=== PATIENT | female | born 1990 | race American Indian/Alaskan Native ===

== ENCOUNTER 2016-12-10 15:50 | Emergency (ER) | payer SELFPAY ==
[2016-12-10 16:40] VITALS: BP 118/76
--- NOTE | 2016-12-10 16:42 | Emergency Department Report ---
Chief Complaint: Abdominal Pain Stated Complaint: ABD PAIN Time Seen by Provider: 12/10/16 16:38 - HPI History of Present Illness: PT c/o LUQ abd pain, onset today. PT states she has been having these pains intermittently x 7 years. - ROS Review of Systems: + abd pain - vomiting - Exam Vital Signs: Vital Signs 12/10/16 16:34 Temperature 98.8 F Pulse Rate 95 H Respiratory 16 Rate Blood Pressure 118/76 O2 Sat by Pulse 99 Oximetry Physical Exam: pt looks well, non toxic, thin pt guarding abd. MSE screening note: Focused history and physical exam performed. Due to findings the following was ordered: labs ED Disposition for MSE Condition: Stable Instructions: Abdominal Pain (ED)
[2016-12-10 16:58] LABS: Basophils % (Auto) 0.5 % (0.0-1.8); Eosinophils % (Auto) 4.1 % (0.0-4.3); Hematocrit 42.2 % (30.3-42.9); Hemoglobin 13.9 gm/dl (10.1-14.3); Mean Corpuscular HGB Conc 33 % (30-34); Mean Corpuscular Hemoglobin 30 pg (28-32); Mean Corpuscular Volume 92 fl (79-97); Platelet Count 218 K/mm3 (140-440); Red Blood Count 4.61 M/mm3 (3.65-5.03); Red Cell Distribution Width 12.7 % (13.2-15.2)
[2016-12-10 17:15] LABS: Alanine Aminotransferase 10 units/L (7-56); Albumin 4.6 g/dL (3.9-5); Albumin/Globulin Ratio 1.4 %; Alkaline Phosphatase 62 units/L (35-129); Anion Gap 17 mmol/L; Blood Urea Nitrogen 14 mg/dL (7-17); Calcium 9.2 mg/dL (8.4-10.2); Carbon Dioxide 25 mmol/L (22-30); Chloride 101.5 mmol/L (98-107); Glucose 66 mg/dL (65-100); Lipase 44 units/L (13-60); Potassium 4.2 mmol/L (3.6-5.0); Sodium 139 mmol/L (137-145)
[2016-12-10 18:59] LABS: Bilirubin,Urine NEG (Negative); Blood,Urine NEG (Negative); Ketones,Urine NEG (Negative); Leukocyte Esterase,Urine TR (Negative); Mucus,Urine 1+ /HPF; Nitrite,Urine NEG (Negative); Protein,Urine <15 mg/dL mg/dL (Negative); Urobilinogen,Urine < 2.0 mg/dL (<2.0)
--- NOTE | 2016-12-15 11:07 | ED Elopement Review ---
ED Pt Elopement review - Results review Lab results: Laboratory Tests 12/10/16 12/10/16 12/10/16 16:47 16:47 16:47 WBC 8.0 RBC 4.61 Hgb 13.9 Hct 42.2 MCV 92 MCH 30 MCHC 33 RDW 12.7 L Plt Count 218 Lymph % (Auto) 29.4 Gu[place]upe % (Auto) 7.4 H Eos % (Auto) 4.1 Baso % (Auto) 0.5 Lymph # 2.3 Guadalupe # 0.6 Eos # 0.3 Baso # 0.0 Seg Neutrophils % 58.6 Seg Neutrophils # 4.7 Sodium 139 Potassium 4.2 Chloride 101.5 Carbon Dioxide 25 Anion Gap 17 BUN 14 Creatinine 0.7 Estimated GFR > 60 BUN/Creatinine Ratio 20.00 Glucose 66 Calcium 9.2 Total Bilirubin 0.30 AST 13 ALT 10 Alkaline Phosphatase 62 Total Protein 8.0 Albumin 4.6 Albumin/Globulin Ratio 1.4 Lipase 44 HCG, Qual Negative Urine Color Urine Turbidity Urine pH Ur Specific [place] Urine Protein Urine Glucose (UA) Urine Ketones Urine Blood Urine Nitrite Urine Bilirubin Urine Urobilinogen Ur Leukocyte Esterase Urine WBC (Auto) Urine RBC (Auto) U Epithel Cells (Auto) Urine Mucus 12/10/16 18:30 WBC RBC Hgb Hct MCV MCH MCHC RDW Plt Count Lymph % (Auto) Gu[place]upe % (Auto) Eos % (Auto) Baso % (Auto) Lymph # [place]upe # Eos # Baso # Seg Neutrophils % Seg Neutrophils # Sodium Potassium Chloride Carbon Dioxide Anion Gap BUN Creatinine Estimated GFR BUN/Creatinine Ratio Glucose Calcium Total Bilirubin AST ALT Alkaline Phosphatase Total Protein Albumin Albumin/Globulin Ratio Lipase HCG, Qual Urine Color Yellow Urine Turbidity Clear Urine pH 5.0 Ur Specific [place] 1.032 H Urine Protein <15 mg/dl Urine Glucose (UA) Neg Urine Ketones Neg Urine Blood Neg Urine Nitrite Neg Urine Bilirubin Neg Urine Urobilinogen < 2.0 Ur Leukocyte Esterase Tr Urine WBC (Auto) 1.0 Urine RBC (Auto) 3.0 U Epithel Cells (Auto) 4.0 Urine Mucus 1+ - Call Back decision Pt Call Back Decision: No action required
== END 2016-12-10 18:38 | disposition left against medical advice (07) ==
LOC: ED 15:50
DX: R10.12 Left upper quadrant pain (principal); Z53.21 Procedure and treatment not carried out due to patient leaving prior to being seen by health care provider
CPT/HCPCS: 36415; 80053; 81001; 83690; 84703; 85025

== ENCOUNTER 2019-01-15 06:54 | Outpatient (CLI) | payer OTHER ==
--- NOTE | 2019-01-15 08:03 | XRay Report ---
ABDOMEN 1 VIEW INDICATION / CLINICAL INFORMATION: R10.84 ABDOMINAL PAIN GENERALIZED/R14.0 BLOATING/GAS PAIN/R19.4CH. COMPARISON: None available. FINDINGS: TUBES / LINES: None. BOWEL GAS PATTERN: No significant abnormality. FREE AIR / EXTRALUMINAL GAS: None seen. ADDITIONAL FINDINGS: No significant additional findings. IMPRESSION: No significant abnormality. Signer Name: Tim Frost MD Signed: 01/15/2019 7:59 AM Workstation Name: [email or web address]
== END 2019-01-15 06:55 | disposition home or self-care (01) ==
LOC: XRAY 06:54
PROVIDERS: ATTEND Internal Medicine Gastroenterology
DX: R10.84 Generalized abdominal pain (principal); R14.0 Abdominal distension (gaseous); R19.4 Change in bowel habit; J45.909 Unspecified asthma, uncomplicated; K21.9 Gastro-esophageal reflux disease without esophagitis
CPT/HCPCS: 74018

== ENCOUNTER 2022-02-23 02:37 | Inpatient (IN) | payer MEDICAID ==
--- NOTE | 2022-02-23 04:11 | Ultrasound Report ---
Obstetrical ultrasound follow-up INDICATION: well-being FINDINGS: There is a single intrauterine gestation that measures about 37 weeks and 6 days. FUAD is no rmal at 10 cm. The fetus is in the cephalic position. heart rates 136 bpm. The fetus weight is approximately 3297 g. IMPRESSION: Single living intrauterine measuring 37 weeks and 6 days. Signer Name: Aj Sheppard MD Signed: 02/23/2022 4:06 AM Workstation Name: [employer] [facility]
[2022-02-23 04:29] LABS: Hematocrit 34.9 % (30.3-42.9); Hemoglobin 11.4 gm/dl (10.1-14.3); Mean Corpuscular HGB Conc 33 % (30-34); Mean Corpuscular Volume 86 fl (79-97); Platelet Count 214 K/mm3 (140-440); Red Blood Count 4.07 M/mm3 (3.65-5.03)
[2022-02-23] MEDS ORDERED: METHYLERGONOVINE MALEATE 0.2 MG/ML VIAL IM PRN (04:51)
[2022-02-23] MEDS ORDERED: ACETAMINOPHEN 325 MG TAB PO PRN ×2 (04:51→20:58)
[2022-02-23] MEDS ORDERED: TERBUTALINE 1 MG/1 ML INJ SUB-Q PRN (04:51)
[2022-02-23] MEDS ORDERED: fentaNYL 100 MCG/2 ML INJ IV PRN (04:51)
[2022-02-23] MEDS ORDERED: CARBOPROST TROMETHAMINE 250 MCG/1 ML INJ IM PRN (04:51)
[2022-02-23] MEDS ORDERED: OXYTOCIN DRIP 30 UNITS/500 ML BAG IV SCH ×2 (05:00→21:00)
[2022-02-23] MEDS ORDERED: LACTATED RINGERS 1,000 ML IV SCH (05:00)
[2022-02-23] MEDS: BUTORPHANOL 2 MG/1 ML INJ IV PRN ×2 (05:07→10:06)
--- NOTE | 2022-02-23 05:10 | History and Physical Report ---
History of Present Illness Date of examination: 02/23/22 Date of admission: 02/23/2022 Chief complaint: Leaking of fluid History of present illness: The patient is a 31-year-old at 39-1/7 weeks gestation who presents to OB triage reporting leaking of fluid. There is no vaginal bleeding. There are contractions that started after the leaking of fluid. There is good movement. In OB triage, ROM plus test was positive. Cervical exam is 1-2 cm dilated. The patient is admitted to labor and delivery for induction of labor secondary to premature rupture of membranes at term. Past History Past Medical History: no pertinent history, GERD Past Surgical History: other (Colonoscopy, EGD) Family/Genetic History: diabetes, hypertension Social history: no significant social history - Obstetrical History Expected Date of Delivery: 03/01/22 Actual Gestation: 39 Week(s) 1 Day(s) : 2 Para: 1 Hx # Term Pregnancies: 1 Number of Pregnancies: 0 Spontaneous Abortions: 0 Induced : 0 Number of Living Children: 1 Medications and Allergies Allergies Allergy/AdvReac Type Severity Reaction Status Date / Time No Known Allergies Allergy Verified 06/04/14 08:50 Home Medications Medication Instructions Recorded Confirmed Last Taken Type Ondansetron [Zofran TAB] 4 mg PO Q6HR PRN #10 tablet 10/18/13 05/10/14 Unknown Rx Hyoscyamine Subl [Levsin Sl 0.125 0.125 mg SL Q4HR PRN 05/10/14 05/10/14 Unknown History TAB] Omeprazole [PriLOSEC] 40 mg PO DAILY 05/10/14 05/10/14 Unknown History polyethylene glycoL 3350 [Miralax] 1 gm PO DAILY 05/10/14 05/10/14 Unknown History Nitrofurantoin Mccone/M-Cryst 100 mg PO Q12HR 7 Days #14 capsule 09/07/21 Unknown Rx [Macrobid CAP] Active Meds: Active Medications Acetaminophen (Acetaminophen 325 Mg Tab) 650 mg PO Q4H PRN PRN Reason: Pain, Mild (1-3) Butorphanol Tartrate (Butorphanol 2 Mg/1 Ml Inj) 2 mg IV Q2H PRN PRN Reason: Pain, Moderate(4-6) LABOR PAIN Carboprost Tromethamine (Carboprost Tromethamine 250 Mcg/1 Ml Inj) 250 mcg IM ONCE PRN PRN Reason: Uterine Bleeding Fentanyl (Fentanyl 100 Mcg/2 Ml Inj) 100 mcg IV Q2H PRN PRN Reason: Pain,Severe (7-10) LABOR PAIN Lactated Ringer's (Lactated Ringers) 1,000 mls @ 125 mls/hr IV DIRECT JOHNIE Oxytocin/Sodium Chloride (Pitocin/Ns 30 Unit/500ml) 30 units in 500 mls @ 40 mls/hr IV TITR JOHNIE; Protocol Methylergonovine Maleate (Methylergonovine Maleate 0.2 Mg/Ml Vial) 0.2 mg IM ONCE PRN PRN Reason: Uterine Bleeding Misoprostol (Misoprostol 25 Mcg Tab) 25 mcg PO Q4H JOHNIE Stop: 02/23/22 17:01 Terbutaline Sulfate (Terbutaline 1 Mg/1 Ml Inj) 0.25 mg SUB-Q ONCE PRN PRN Reason: Hyperstimulation/Hypertonicity Review of Systems All systems: negative - Vital Signs Vital signs: Vital Signs Temp 98.4 F 02/23/22 02:59 Temp Pulse Resp BP Pulse Ox 98.4 F 63 120/77 87 02/23/22 02:59 02/23/22 05:06 02/23/22 04:49 02/23/22 05:06 - Physical Exam Breasts: Positive: normal Cardiovascular: Regular rate Lungs: Positive: Normal air movement Abdomen: Positive: normal appearance Genitourinary (Female): Positive: normal external genitalia, normal perenium Vulva: both: normal Vagina: Positive: normal moisture Uterus: Positive: enlarged Adnexa: both: normal Anus/Rectum: Positive: normal perianal skin Extremities: Positive: normal Deep Tendon Reflex Grade: Normal +2 - Obstetrical FHR: category 1 Uterine Contraction Monitor Mode: External Cervical Dilatation: 1.5 (Mid) Cervical Effacement Percentage: 50 (Medium) station: -3 Uterine Contraction Frequency (min): 5 Uterine Contraction Pattern: Irregular Results Result Diagrams: 02/23/22 04:10 Abnormal lab results 02/23/22 Range/Units 04:10 RDW 17.0 H (13.2-15.2) % ROM plus = positive Ultrasound: report reviewed, image reviewed Assessment and Plan - Patient Problems (1) 39 weeks gestation of Current Visit: Yes Status: Acute Plan to address problem: care is up-to-date [facility]. She is GBS negative. (2) PROM with onset of labor within 24 hours of rupture Current Visit: Yes Status: Acute Plan to address problem: ROM plus is positive. The patient is 1 to 2 cm dilated. Contractions started after leaking of fluid. As such, this fulfills the contemporary criteria for premature rupture membranes at term. Therefore, induction of labor is medically indicated at this gestational age. (3) Encounter for induction of labor Current Visit: Yes Status: Acute Plan to address problem: Ripen cervix with oral Cytotec. Once cervix is favorable, then Pitocin per protocol.
[2022-02-23] MEDS: miSOPROStol 25 MCG TAB PO SCH ×2 (05:13→10:05)
--- NOTE | 2022-02-23 11:11 | Event Note ---
Date: 02/23/22 Evaluated patient, spouse at bs consoling her. c/o of pain. VE /-3. Per Rn Stadol 2mg recently given. Comfort measures discussed. VSS
[2022-02-23] MEDS ORDERED: fentaNYL-BUPIV 2 MCG/ML-0.125% 200 MCG/100 ML BAG EPIDURAL ONE (13:02)
[2022-02-23] MEDS ORDERED: ePHEDrine SULFATE 50 MG/1 ML INJ IV PRN (13:02)
[2022-02-23] MEDS ORDERED: NALOXONE 0.4 MG/1 ML INJ IV PRN (13:02)
[2022-02-23] MEDS ORDERED: fentaNYL-BUPIV 2 MCG/ML-0.125% 200 MCG/100 ML BAG EPIDURAL SCH (13:02)
--- NOTE | 2022-02-23 13:13 | Anesthesia Day of Surgery ---
Anesthesia Day of Surgery - Day of Surgery Patient Examined: Yes Patient H&P Reviewed: Yes Patient is NPO: Yes Beta Blockers: No Cardiac Clearance: No Pulmonary Clearance: No Bobby's Test: N/A
--- NOTE | 2022-02-23 13:13 | Anesthesia Consultation ---
Anesthesia Consult and Med Hx Date of service: 02/23/22 - Airway Anesthetic Teeth Evaluation: Good ROM Head & Neck: Adequate Mental/Hyoid Distance: Adequate Mallampati Class: Class II Intubation Access Assessment: Probably Good - Pulmonary Exam CTA: Yes - Cardiac Exam Cardiac Exam: RRR - Pre-Operative Health Status ASA Pre-Surgery Classification: ASA2 Proposed Anesthetic Plan: Epidural - Pulmonary Hx Smoking: No Hx Asthma: No Hx Respiratory Symptoms: No SOB: No COPD: No Home Oxygen Therapy: No Hx Pneumonia: No Hx Sleep Apnea: No - Cardiovascular System Hx Hypertension: No Hx Coronary Artery Disease: No Hx Heart Attack/AMI: No Hx Angina: No Hx Percutaneous Transluminal Coronary Angioplasty (PTCA): No Hx Cardia Arrhythmia: No Hx Pacemaker: No Hx Internal Defibrillator: No Hx Valvular Heart Disease: No Hx Heart Murmur: No Hx Peripheral Vascular Disease: No - Central Nervous System Hx Neuromuscular Disorder: No Hx Seizures: No CVA: No Hx Back Pain: No Hx Psychiatric Problems: No - Gastrointestinal Hx Ulcer: No (epigastric pain, chronic indigestion) Hx Gastroesophageal Reflux Disease: Yes - Endocrine Hx Renal Disease: No Hx End Stage Renal Disease: No Hx Cirrhosis: No Hx Liver Disease: No Hx Insulin Dependent Diabetes: No Hx Non-Insulin Dependent Diabetes: No Hx Thyroid Disease: No Hx Hypothyroidism: No Hx Hyperthyroidism: No - Hematic Hx Anemia: No Hx Sickle Cell Disease: No - Other Systems Hx Alcohol Use: Yes (social before ) Hx Substance Use: No Hx Cancer: No Hx Obesity: Yes
--- NOTE | 2022-02-23 13:14 | Progress Note ---
Labor Epidural - Labor Epidural Start Time: 12:27 Stop Time: 12:37 Performed by:: GOOD BRYAN Procedure: Epidural Requested for Labor Pain. H&P and PT Chart reviewed and consent obtained. Time out performed and the procedure was explained, all questions answered. Patient was placed in a sitting position with monitors applied. The PTs back was prepped and draped in usual sterile fashion. The Skin was localized with 3 mL of 1% lidocaine at L3-L4. A 17-gauge Touhy epidural needle was advanced to VANGIE with saline at 7 cm and no blood/CSF was noted via epidural needle. Epidural catheter was advanced to 12 cm. There was negative aspiration for blood and CSF in the catheter and negative response to a test dose of 3 ml 1.5% lidocaine w/ Epi and a sterile dressing was applied Patient tolerated the procedure well and there were no immediate complications noted.
--- NOTE | 2022-02-23 14:28 | Event Note ---
Date: 02/23/22 Assessed patient, she is smiling now. States feels much better after epidural. VE /-2 cat 1 tracing
[2022-02-23] MEDS ORDERED: MINERAL OIL 30 ML ORAL LIQD ONE (19:59)
[2022-02-23] MEDS ORDERED: miSOPROStol 200 MCG TAB ONE (20:30)
--- NOTE | 2022-02-23 20:47 | Procedure Note ---
OB Delivery Note - Delivery Date of Delivery: 02/23/22 (2020) Surgeon: JORGE MORALES Estimated blood loss: 100cc - Vaginal Delivery presentation: vertex Delivery position: OA Intrapartum events: meconium Delivery induction: misoprostol Delivery augmentation: rupture of membranes, pitocin Delivery monitor: external FHT, external uterine Route of delivery: Delivery placenta: spontaneous Delivery cord: 3 umbilical vessels Episiotomy: none Delivery laceration: 1st degree (midline vaginal) Delivery repair: chromic (2.0) Anesthesia: intravenous, epidural Delivery comments: now presented to labor and delivery complaining of fluid leaking. She was admitted, augmented with cytotec po, and received and epidural. Pitocin was started, she became complete/+1 station. She delivered a viable baby Girl @2020 on 02/23/2022, Meconium stainned, was placed on maternal abdomen, cord was cut by FOB and quickly given to [facility] team. 8/9, Placenta delivered spontaneously at 2026, remnents of placenta manually removed from uterus, cytotec 800mcg placed in rectum, 1st degree midline vaginal laceration was repaired with 2.0 chromic.QBL 100ml. Both Mother and infant are stable. - Infant A at 1 minute: 8 at 5 minutes: 9 Gender: Female
[2022-02-23] MEDS ORDERED: HYDROCORTISONE 25 MG RECTAL SUPP PR PRN (20:58)
[2022-02-23] MEDS ORDERED: MAGNESIUM HYDROXIDE (MOM) ORAL LIQD UDC PO PRN (20:58)
[2022-02-23] MEDS ORDERED: BENZOCAINE/MENTHOL 20/0.5% TOP SPRAY 56 GM TP PRN (20:58)
[2022-02-23] MEDS ORDERED: PROMETHAZINE 25 MG RECT SUPP PR PRN (20:58)
[2022-02-23] MEDS ORDERED: oxyCODONE /ACETAMINOPHEN 5-325MG TAB PO PRN (20:58)
[2022-02-23] MEDS ORDERED: diphenhydrAMINE 25 MG CAP PO PRN (20:58)
[2022-02-23] MEDS ORDERED: WITCH HAZEL/ GLYCERIN PAD TP PRN (20:58)
[2022-02-23] MEDS ORDERED: PROMETHAZINE 25 MG TAB PO PRN (20:58)
[2022-02-23] MEDS ORDERED: ONDANSETRON 4 MG/2 ML INJ IV PRN (20:58)
[2022-02-23] MEDS ORDERED: LANOLIN/ZINC/DIMETHICONE (LANSINOH) 7 GM TP PRN ×2 (20:58)
[2022-02-23] MEDS: SENNOSIDES/DOCUSATE SODIUM 8.6/50 MG TAB PO SCH (23:00)
[2022-02-23] MEDS: IBUPROFEN 600 MG TAB PO SCH (23:00)
[2022-02-23] MEDS: DOCUSATE SODIUM 100 MG CAP PO SCH (23:20)
[2022-02-24] MEDS: IBUPROFEN 600 MG TAB PO SCH (06:22)
[2022-02-24 09:48] LABS: Hematocrit 29.7 % (30.3-42.9); Hemoglobin 9.7 gm/dl (10.1-14.3)
--- NOTE | 2022-02-24 13:12 | Progress Note ---
Assessment and Plan A: PP Day #1 Asymptomatic Anemia Negative Flatus P: Follow Routine Orders Ferrous Sulfate 325mg PO BID Increase Increased Ambulation Subjective - Subjective Date of service: 02/24/22 Patient reports: appetite normal, voiding normally, pain well controlled, ambulating normally : doing well Objective - Vital Signs Latest vital signs: Vital Signs Temp Pulse Resp BP BP Pulse Ox Pulse Ox 02/24/22 11:57 98.1 F 80 20 111/76 97 02/24/22 08:27 98 02/24/22 07:36 97.9 F 84 16 115/70 95 02/24/22 07:21 18 02/24/22 06:22 20 02/24/22 04:45 98.5 F 87 20 115/78 98 02/24/22 00:19 18 02/24/22 00:00 98.4 F 02/23/22 23:19 18 02/23/22 23:00 18 02/23/22 22:48 100.9 F H 84 18 125/65 98 98 02/23/22 22:16 102 H 109/66 02/23/22 22:08 88 87 02/23/22 22:06 86 100 02/23/22 22:01 91 H 100 02/23/22 21:56 90 83 L 02/23/22 21:51 97 H 100 02/23/22 21:47 98.6 F 16 02/23/22 21:46 105 H 100 02/23/22 21:41 89 100 02/23/22 21:36 90 100 02/23/22 21:31 84 100 02/23/22 21:26 101 H 100 02/23/22 21:21 104 H 100 02/23/22 21:16 103 H 100 02/23/22 21:11 102 H 85 02/23/22 21:06 104 H 100 02/23/22 21:04 107 H 93 02/23/22 21:01 107 H 100 02/23/22 20:56 122 H 100 02/23/22 20:51 92 H 100 02/23/22 20:46 99 02/23/22 20:41 84 100 02/23/22 20:36 82 100 02/23/22 20:31 76 114/55 100 02/23/22 20:30 83 85 02/23/22 20:26 86 100 02/23/22 20:21 123 H 100 02/23/22 20:16 102 H 100 02/23/22 20:14 73 90 02/23/22 20:11 99 H 100 02/23/22 20:06 85 100 02/23/22 20:01 96 H 98 02/23/22 19:56 98 H 99 02/23/22 19:51 94 H 100 02/23/22 19:46 75 100 02/23/22 19:44 101 H 111/63 02/23/22 19:41 77 100 02/23/22 19:37 112 H 90 02/23/22 19:36 109 H 99 02/23/22 19:31 83 99 02/23/22 19:29 86 112/67 02/23/22 19:26 95 H 100 02/23/22 19:21 74 100 02/23/22 19:16 88 107/69 99 02/23/22 19:11 75 100 02/23/22 19:06 97.5 F L 63 17 100 100 02/23/22 19:01 69 99 02/23/22 19:00 72 101/60 02/23/22 18:56 72 100 02/23/22 18:51 87 100 02/23/22 18:46 76 100 02/23/22 18:45 74 91 02/23/22 18:41 71 100 02/23/22 18:36 66 80 L 02/23/22 18:31 76 100 02/23/22 18:26 92 H 100 02/23/22 18:21 73 100 02/23/22 18:16 82 93 02/23/22 18:11 78 100 02/23/22 18:06 67 100 02/23/22 18:01 73 100 02/23/22 17:59 76 115/78 02/23/22 17:56 72 100 02/23/22 17:51 67 100 02/23/22 17:46 69 100 02/23/22 17:45 66 126/80 02/23/22 17:41 75 100 02/23/22 17:36 74 100 02/23/22 17:31 75 138/80 100 02/23/22 17:26 67 100 02/23/22 17:21 75 100 02/23/22 17:16 73 100 02/23/22 17:15 76 105/67 02/23/22 17:14 97.5 F L 18 100 02/23/22 17:11 63 100 02/23/22 17:06 77 100 02/23/22 17:01 74 100 02/23/22 17:00 74 129/86 02/23/22 16:56 80 100 02/23/22 16:51 71 100 02/23/22 16:46 83 98 02/23/22 16:45 88 92 02/23/22 16:41 72 98 02/23/22 16:36 60 100 02/23/22 16:31 75 95/50 99 02/23/22 16:26 58 L 100 02/23/22 16:21 71 100 02/23/22 16:16 56 L 100 02/23/22 16:15 58 L 109/55 02/23/22 16:11 66 100 02/23/22 16:06 58 L 99 02/23/22 16:01 67 84 02/23/22 15:56 70 100 02/23/22 15:51 87 100 02/23/22 15:46 69 100 02/23/22 15:45 62 102/56 02/23/22 15:41 83 100 02/23/22 15:36 60 100 02/23/22 15:31 70 100 02/23/22 15:29 60 99/60 02/23/22 15:26 60 100 02/23/22 15:21 69 100 02/23/22 15:16 55 L 115/62 100 02/23/22 15:11 64 100 02/23/22 15:06 54 L 100 02/23/22 15:01 70 100 02/23/22 14:59 57 L 97/52 02/23/22 14:56 56 L 98 02/23/22 14:51 69 99 02/23/22 14:46 57 L 99 02/23/22 14:45 59 L 111/61 02/23/22 14:41 67 99 02/23/22 14:36 60 99 02/23/22 14:31 70 100 02/23/22 14:29 61 106/60 02/23/22 14:26 71 100 02/23/22 14:23 82 90 02/23/22 14:21 63 100 02/23/22 14:16 72 100 02/23/22 14:14 64 108/64 02/23/22 14:11 84 96 02/23/22 14:06 92 H 100 02/23/22 14:01 63 100 02/23/22 14:00 64 119/70 02/23/22 13:56 77 99 02/23/22 13:51 58 L 97 02/23/22 13:46 72 97 02/23/22 13:44 65 96/54 02/23/22 13:41 59 L 97 02/23/22 13:36 73 98 02/23/22 13:31 56 L 112/59 98 02/23/22 13:26 79 98 02/23/22 13:21 62 97 02/23/22 13:16 90 99 02/23/22 13:15 20 98/56 02/23/22 13:14 89 98/56 02/23/22 13:11 82 97 Intake and Output 02/23/22 02/24/22 02/24/22 22:59 06:59 14:59 Intake Total 6.534 580 120 Output Total 1000 1750 Balance -993.466 -1170 120 Intake: IV 6.534 PITOCin/NS 30 UNIT/500ML 6.534 30 units In 500 ml @ 40 mls/hr IV TITR JOHNIE Rx#: [id number] Oral 100 120 Intake, Free Water 480 Output: Urine 1000 1750 Indwelling Catheter 1000 Void 1750 Other: Total, Intake Amount 100 120 Total, Output Amount 200 600 # Voids Void 3 1 # Bowel Movements 1 Estimated Blood Loss 100 - Exam Breasts: Present: normal Cardiovascular: Present: Regular rate Lungs: Present: Clear to auscultation, Normal air movement Abdomen: Present: normal appearance, soft, normal bowel sounds Uterus: Present: normal, firm, fundal height below umbilicus Extremities: Present: normal - Labs Labs: Abnormal lab results 02/24/22 Range/Units 08:58 Hgb 9.7 L (10.1-14.3) gm/dl Hct 29.7 L (30.3-42.9) %
[2022-02-24] MEDS: SENNOSIDES/DOCUSATE SODIUM 8.6/50 MG TAB PO SCH (22:00)
[2022-02-24] MEDS: DOCUSATE SODIUM 100 MG CAP PO SCH (22:16)
[2022-02-24] MEDS: FERROUS SULFATE 325 MG TAB PO SCH (22:16)
[2022-02-25] MEDS: IBUPROFEN 600 MG TAB PO SCH
--- NOTE | 2022-02-25 00:05 | Post Anesthesia Evaluation ---
- Post Anesthesia Evaluation Patient Participated: Yes Airway Patent: Yes Stable Respiratory Function: Yes Nausea/Vomiting: No Temp > 96.8F: Yes Pain Manageable: Yes Adequeate Hydration: Yes Anesthesia Complications: No Block Receding Appropriately: Yes Patient on Ventilator: No
[2022-02-25 08:20] VITALS: BP 121/80
[2022-02-25] MEDS: SENNOSIDES/DOCUSATE SODIUM 8.6/50 MG TAB PO SCH (10:18)
[2022-02-25] MEDS: DOCUSATE SODIUM 100 MG CAP PO SCH (10:18)
[2022-02-25] MEDS: FERROUS SULFATE 325 MG TAB PO SCH (10:18)
--- NOTE | 2022-02-25 13:16 | Discharge Summary ---
Providers - Providers Date of Admission: 02/23/22 06:04 Date of discharge: 02/25/22 Attending physician: JUSTIN WARD MD Primary care physician: JUSTIN WARD MD Hospitalization Reason for admission: active labor Delivery: Episiotomy: none Laceration: 1st degree (vaginal midline) Other procedures: none complications: none Discharge diagnosis: IUP at term delivered baby: female Condition at discharge: Good Disposition: 01 HOME / SELF CARE / HOMELESS Plan - Provider Discharge Summary Activity: no sex for 6 weeks, no heavy lifting 4 weeks, no strenuous exercise Diet: routine Instructions: routine Additional instructions: [] Smoking cessation referral if applicable(refer to patient education folder for contact #) [] Refer to [facility] Booklet Call your doctor immediately for: * Fever > 100.5 * Heavy vaginal bleeding ( >1 pad per hour) * Severe persistent headache * Shortness of breath * Reddened, hot, painful area to leg or breast * Drainage or odor from incision. - Follow up plan Follow up: JUSTIN WARD MD [Primary Care Provider] - 6 Weeks ([facility]) Forms: [facility] Discharge Summary
== END 2022-02-25 12:10 | disposition home or self-care (01) | DRG 775 ==
LOC: TRG 02:37 → APU 03:00 → TRG 04:51 → LD 05:00 → OB 23:07
PROVIDERS: ADMIT Obstetrics & Gynecology Gynecology; ATTEND Obstetrics & Gynecology Gynecology
PROC: 10E0XZZ Delivery of Products of Conception, External Approach (ICD-10-PCS; principal; 2022-02-23)
PROC: 0HQ9XZZ Repair Perineum Skin, External Approach (ICD-10-PCS; 2022-02-23)
PROC: 3E0R3BZ Introduction of Anesthetic Agent into Spinal Canal, Percutaneous Approach (ICD-10-PCS; 2022-02-23)
PROC: 00HU33Z Insertion of Infusion Device into Spinal Canal, Percutaneous Approach (ICD-10-PCS; 2022-02-23)
DX: O42.02 Full-term premature rupture of membranes, onset of labor within 24 hours of rupture (principal); O77.0 Labor and delivery complicated by meconium in amniotic fluid; Z20.822 Contact with and (suspected) exposure to COVID-19; O70.0 First degree perineal laceration during delivery; Z3A.39 39 weeks gestation of pregnancy; Z37.0 Single live birth; O90.81 Anemia of the puerperium; O99.214 Obesity complicating childbirth
CPT/HCPCS: 36415; 76816; 84112; 85014; 85018; 85027; 86592; 86850; 86900; 86901; G0378; J3490; J0595; J2590; U0003